=== PATIENT | male | born 1985 | race Native Hawaiian/Other Pacific Islander ===

== ENCOUNTER 2016-11-22 01:26 | Emergency (ER) | payer OTHER ==
[~2016-11-22] VITALS: Ht 180.3 cm; Wt 103.4 kg
[2016-11-22 02:07] LABS: PLATELET COUNT 317 K/uL (142-355)
[2016-11-22 02:14] LABS: POTASSIUM 3.4 mmol/L (3.6-5.2); SODIUM 138 mmol/L (136-145)
== END 2016-11-22 03:59 | disposition left against medical advice (07) ==
LOC: ED 01:26
DX: R07.89 Other chest pain (principal); R06.09 Other forms of dyspnea; R04.2 Hemoptysis
CPT/HCPCS: 36415; 80053; 82550; 84484; 85027; 96372; 99283; J1650; Q9963